=== PATIENT | male | born 1955 | race Caucasian/White ===

== ENCOUNTER → 2019-09-08 | Day surgery (SDC) | payer BC, OTHER ==
[~2019-09-08] MED LIST: ASPIRIN325 MG PO; FENTANYL CITRATE/PF 100MCG/2 ML INJ ONE; GLUCAGON FOR INJ 1 MG VIAL ONE; HYOSCYAMINE 0.125 MG TAB ONE; KETAMINE HCL INJ 50 MG/ML 10 ML VIAL ONE; LIPITOR20 MG PO; LOTREL 10-20 M1 EACH PO; MIDAZOLAM HCL 2 MG/2 ML VIAL ONE; MULTIVITAMINS1 EAC7 PO; NORCO 10-325 T1 EACH PO; PROPOFOL IV EMULSION 10 MG/ML 20 ML VIAL ONE
[2019-09-08 10:15] VITALS: BP 138/77
--- NOTE | 2019-09-08 10:45 | Operative Report ---
DATE OF PROCEDURE: 09/08/2019 SURGEON: Stefan Olson MD PROCEDURE: Colonoscopy with polypectomy note. INDICATIONS FOR COLONOSCOPY: Colorectal cancer screening, positive Cologuard test. MEDICATIONS: The patient was done under MAC, please see anesthesiologist's note. PROCEDURE IN DETAIL: With the patient in left lateral decubitus position, a flexible fiberoptic Olympus colonoscope was inserted into the rectum with ease and advanced all the way to the cecum. Diverticular disease was noted in the cecum as well as the ascending colon. Scope was then withdrawn slowly, whatever was visualized the mucosa overlying the cecum appeared to be within normal limits. Two polyps were cold snared from the ascending colon. The transverse descending and sigmoid grossly appeared to be within normal limits. The colon was excessively irritable and spastic. One polyp was hot snared from the rectum. The scope was then retroflexed into the distal rectum and moderate-sized internal hemorrhoids were noted, none of which was actively bleeding. The scope was then straightened out, it was subsequently withdrawn. The patient tolerated the procedure well. IMPRESSION: 1. Diverticulosis, primarily cecum and ascending colon. 2. Ascending colon polyps x2, cold snared. 3. Rectal polyp, approximately 5 mm in size, sessile, hot snared. 4. Internal hemorrhoids, none actively bleeding. PLAN: 1. Follow up histology. 2. Initiate high-fiber, low-fat diet. 3. Initiate high-fiber supplement. 4. The patient might benefit from a followup colonoscopy in 2 years considering the positive of Cologuard test and presence of colon polyps. Stefan Olson MD [facility] [place]/[facility] /[id number] cc: Casper Diego DO
== END | disposition home or self-care (01) ==
LOC: OR 07:00
PROVIDERS: ATTEND Internal Medicine Gastroenterology
DX: R19.5 Other fecal abnormalities (principal); D12.2 Benign neoplasm of ascending colon; K62.1 Rectal polyp; K58.9 Irritable bowel syndrome, unspecified; K57.30 Diverticulosis of large intestine without perforation or abscess without bleeding; K64.8 Other hemorrhoids; K21.9 Gastro-esophageal reflux disease without esophagitis; I10 Essential (primary) hypertension; E78.00 Pure hypercholesterolemia, unspecified; F17.210 Nicotine dependence, cigarettes, uncomplicated; Z88.6 Allergy status to analgesic agent; Z01.810 Encounter for preprocedural cardiovascular examination; Z01.812 Encounter for preprocedural laboratory examination; Z11.59 Encounter for screening for other viral diseases; Z79.82 Long term (current) use of aspirin
CPT/HCPCS: 45385; 87635; 93005; J1610; J2250; J2704; J3010; 45378